=== PATIENT | female | born 2005 | race Caucasian/White ===

== ENCOUNTER 2024-03-11 06:54 | Emergency (ER) | payer SELFPAY ==
[2024-03-11 06:59] VITALS: BP 134/78; PULSE 90; RESP 20; TEMP 36.6; O2SAT 100
--- NOTE | 2024-03-11 07:25 | ED.GENADULT ---
HPI - General Adult General Chief complaint: Skin/Abscess/Foreign Body Stated complaint: redness to right cheek, popped a pimple Time Seen by Provider: 03/11/24 07:11 History of Present Illness HPI narrative: Patient 18-year-old female presents emergency department with chief complaint of focal the right face. The patient reports she had a small pimple that she popped and then noticed another 1 showed up on her right wheat. The patient reports the area is red and swollen the patient denies trismus denies shortness of breath denies fever Related Data Allergies Allergy/AdvReac Type Severity Reaction Status Date / Time bee venom protein (honey bee) Allergy Anaphylaxis Verified 03/11/24 07:05 [bees] Review of Systems Review of Systems: A 10 system review of systems was completed on the patient and is negative except for what is stated in the HPI. Nursing and ancillary documentation was reviewed. Exam Narrative: GENERAL: Well-appearing, well-nourished, and in no acute distress. HEAD: Normocephalic, atraumatic. EYES: PERRLA and EOMI. ENT: Nares clear, no rhinorrhea or epistaxis. Mucous membranes moist. NECK: Supple. CHEST: Clear to auscultation. No respiratory distress. HEART: Regular rate and rhythm. No murmur heard. Normal peripheral pulses. ABDOMEN: Soft, nontender, nondistended, normal active bowel sounds. EXTREMITIES: Normal range of motion. No edema. SKIN: Warm, dry, there is a small area of cellulitis present the right cheek at the location of a pop pimple. NEURO: No focal deficits. Alert and oriented x3. PSYCH: Normal mood and affect. Course Vital Signs Vital signs: Vital Signs Temperature 36.6 C 03/11/24 06:59 Pulse Rate 90 03/11/24 06:59 Respiratory Rate 20 03/11/24 06:59 Blood Pressure 134/78 03/11/24 06:59 Pulse Oximetry 100 03/11/24 06:59 Oxygen Delivery Room Air 03/11/24 06:59 Temperature 36.6 C 03/11/24 06:59 Pulse Rate 90 03/11/24 06:59 Respiratory Rate 20 03/11/24 06:59 Blood Pressure 134/78 03/11/24 06:59 Pulse Oximetry 100 03/11/24 06:59 Oxygen Delivery Room Air 03/11/24 06:59 Medical Decision Making MDM Narrative Medical decision making narrative: Differential diagnosis includes cellulitis, abscess Patient is nontoxic showing no signs of airway compromise there is no drainable abscess this time Patient was started on doxycycline Vital Signs Vital Signs: Vital Signs Temperature 36.6 C 03/11/24 06:59 Pulse Rate 90 03/11/24 06:59 Respiratory Rate 20 03/11/24 06:59 Blood Pressure 134/78 03/11/24 06:59 Pulse Oximetry 100 03/11/24 06:59 Oxygen Delivery Room Air 03/11/24 06:59 Temperature 36.6 C 03/11/24 06:59 Pulse Rate 90 03/11/24 06:59 Respiratory Rate 03/11/24 06:59 Blood Pressure 134/78 03/11/24 06:59 Pulse Oximetry 100 03/11/24 06:59 Oxygen Delivery Room Air 03/11/24 06:59 Discharge Plan Discharge Clinical Impression: Cellulitis Patient Disposition: Home, Self-Care Condition: Stable Instructions: Antibiotic Form, Cellulitis (ED), Acne (ED) Prescriptions: New doxycycline hyclate 100 mg tablet 100 mg PO BID Qty: 14 0RF Follow-up/Referrals: PHYSICIAN NOT ON STAFF,NONSTAFF [Primary Care Provider] - Les Carroll MD [Physician] - Time of Disposition: 07:25
[2024-03-11] MEDS: DOXYCYCLINE HYCLATE 100 MG TABLET PO (07:32)
== END 2024-03-11 07:35 | disposition home or self-care (01) ==
LOC: ANHED 07:33
PROVIDERS: Emergency Provider Emergency Medicine
DX: L03.811 Cellulitis of head [any part, except face] (principal)
CPT/HCPCS: 99283; A9270